=== PATIENT | male | born 1955 | race Caucasian/White ===

== ENCOUNTER 2021-01-06 19:20 | Emergency (ER) | payer OTHER ==
[2021-01-06 19:47] VITALS: BP 140/77; PULSE 63; TEMP 99; BMI 23.0
[2021-01-06] MEDS ORDERED: DIPHTH,PERTUSS(ACELL),TET 0.5 ML DISP.SYRIN IM ONE ×2 (19:58→20:01)
[2021-01-06] MEDS ORDERED: CEPHALEXIN MONOHYDRATE 500 MG CAPSULE (UD) PO ONE (19:59)
[2021-01-06] MEDS ORDERED: CEPHALEXIN MONOHYDRATE 500 MG CAPSULE (UD) ONE (20:01)
== END 2021-01-06 20:13 | disposition home or self-care (01) ==
LOC: FER 19:20
PROC: 3E0234Z Introduction of Serum, Toxoid and Vaccine into Muscle, Percutaneous Approach (ICD-10-PCS; principal; 2021-01-06)
DX: S61.432A Puncture wound without foreign body of left hand, initial encounter (principal)
CPT/HCPCS: 99284-25